=== PATIENT | female | born 1965 | race Caucasian/White ===

== ENCOUNTER 2017-04-29 23:50 | Observation (INO) | payer BC, OTHER ==
[~2017-04-29] VITALS: Ht 170.2 cm; Wt 117.2 kg
[~2017-04-29 23:50] MED LIST: ALEVE220 MG PO; AMPYRA10 MG PO; ANTI-GAS180 MG PO; BENADRYL50 MG PO; BENTYL20 MG PO; BUPROPION XL150 MG PO; CEFDINIR300 MG PO; CELEBREX200 MG PO; CIPRO500 MG PO; COLACE100 MG PO; COQ-10100 MG PO; CYANOCOBALAM1000 MCG PO; DULCOLAX10 MG PR; FISH OIL 1,0001 EAC7 PO; FLEET MINERAL133 ML PR; GAS-X80 MG PO; GENICIN500 MG PO; IBUPROFEN600 MG PO; LEVOFLOXACIN750 MG PO; MILK OF MAGN PO; NORCO 5/3251 TABLET PO; PERCOCET 5/31 TABLET PO; SERTRALINE HCL100 MG PO; SERTRALINE HCL50 MG PO; ST. JOHN'S WOR300 MG PO; TRAZODONE HCL50 MG PO; TYSABRI300 MG/15 IV; VITAMIN D1000 UNIT PO; WELLBUTRIN SR150 MG PO; ZOLOFT100 MG PO; Zeasorb Antifungal Treatment,Mitrazol Powder TP; [UNRECOGNIZED DRUG - OTHER]
[2017-04-30 00:41] LABS: HEMATOCRIT 35.5 % (36.0-46.0); MCH 27.1 PG (29.0-34.0); MCHC 34.1 G/DL (30.0-36.0); MCV 79.6 FL (83-99); MEAN PLAT.VOLUME 8.8 uM^3 (9.5-12.4); NRBC (%) 0.6 /100 WBC (0-0); PLATELET COUNT 156 K/uL (156-360); RBC DIS.WIDTH-CV 15.3 % (11.8-14.6); RBC DIS.WIDTH-SD 44.4 % (39-53); RED BLOOD COUNT 4.46 M/uL (3.80-5.20); WHITE BLOOD COUNT 6.5 K/uL (4.1-10.2)
[2017-04-30 00:51] LABS: CHLORIDE 107 mEq/L (99-109); POTASSIUM 3.8 mEq/L (3.7-5.4); SODIUM 141 mEq/L (136-147)
[2017-04-30 00:53] LABS: GLUCOSE 120 mg/dL (70-99)
[2017-04-30 00:54] LABS: ANION GAP 10 MEQ/L (2-14)
[2017-04-30 00:57] LABS: GFR ESTIMATE (CALCULATED) > 59 mL/min/; UREA NITROGEN (BUN) 10 mg/dL (9-23)
[2017-04-30 11:18] VITALS: BP 131/68
[2017-04-30] MEDS ORDERED: TRAZODONE HCL100 MG PO (12:25)
[2017-04-30] MEDS ORDERED: BENADRYL50 MG PO (12:26)
[2017-04-30 16:21] VITALS: BP 124/72
[2017-04-30 20:09] VITALS: BP 133/72
[2017-05-01 00:34] VITALS: BP 124/74
[2017-05-01 04:10] VITALS: BP 135/74
[2017-05-01 08:36] VITALS: BP 127/59
[2017-05-01 09:43] LABS: HEMATOCRIT 31.5 % (36.0-46.0); MCH 28.5 PG (29.0-34.0); MCHC 35.2 G/DL (30.0-36.0); MCV 80.8 FL (83-99); MEAN PLAT.VOLUME 8.7 uM^3 (9.5-12.4); NRBC (%) 0.4 /100 WBC (0-0); PLATELET COUNT 121 K/uL (156-360); RBC DIS.WIDTH-CV 15.3 % (11.8-14.6); RBC DIS.WIDTH-SD 44.9 % (39-53); WHITE BLOOD COUNT 5.5 K/uL (4.1-10.2)
[2017-05-01 10:49] LABS: ANION GAP 8 MEQ/L (2-14); CHLORIDE 105 MEQ/L (99-109); GFR ESTIMATE (CALCULATED) > 59 mL/min/; GLUCOSE 125 mg/dL (70-99); POTASSIUM 3.5 MEQ/L (3.7-5.4); SAMPLE HEMOLYSIS CHECK 0; SAMPLE ICTERIC CHECK 0; SAMPLE LIPEMIA CHECK 0; SODIUM 140 MEQ/L (136-147); UREA NITROGEN (BUN) 11 mg/dL (9-23)
[2017-05-01 11:58] VITALS: BP 126/67
[2017-05-01 17:19] VITALS: BP 128/74
[2017-05-01 23:33] VITALS: BP 129/78
[2017-05-02 04:57] VITALS: BP 131/72
[2017-05-02 08:06] VITALS: BP 124/62
[2017-05-02 10:36] LABS: HEMATOCRIT 34.6 % (36.0-46.0); MCH 26.8 PG (29.0-34.0); MCHC 33.5 G/DL (30.0-36.0); MCV 79.9 FL (83-99); MEAN PLAT.VOLUME 8.4 uM^3 (9.5-12.4); NRBC (%) 0.7 /100 WBC (0-0); PLATELET COUNT 132 K/uL (156-360); RBC DIS.WIDTH-CV 15.2 % (11.8-14.6); RBC DIS.WIDTH-SD 44.1 % (39-53); RED BLOOD COUNT 4.33 M/uL (3.80-5.20); WHITE BLOOD COUNT 5.9 K/uL (4.1-10.2)
[2017-05-02] MEDS ORDERED: DULOXETINE HCL30 MG PO (10:38)
[2017-05-02 10:56] LABS: ANION GAP 12 MEQ/L (2-14); CHLORIDE 106 MEQ/L (99-109); GFR ESTIMATE (CALCULATED) > 59 mL/min/; GLUCOSE 111 mg/dL (70-99); POTASSIUM 3.5 MEQ/L (3.7-5.4); SAMPLE HEMOLYSIS CHECK 0; SAMPLE ICTERIC CHECK 0; SAMPLE LIPEMIA CHECK 0; SODIUM 142 MEQ/L (136-147); UREA NITROGEN (BUN) 9 mg/dL (9-23)
[2017-05-02] MEDS ORDERED: LEXAPRO10 MG PO (14:49)
[2017-05-02] MEDS ORDERED: CYMBALTA60 MG PO (15:26)
[2017-05-02 16:18] VITALS: BP 127/67
== END 2017-05-02 18:13 | disposition home or self-care (01) ==
LOC: EME 23:50 → EDOF 04-30 01:58 → 3EAST 04-30 01:58 → EDOF 04-30 01:58 → 3EAST 04-30 06:59
PROVIDERS: Emergency Medicine; Physician Assistant
DX: G35 Multiple sclerosis (principal); G89.29 Other chronic pain; F33.9 Major depressive disorder, recurrent, unspecified; F41.9 Anxiety disorder, unspecified; N31.9 Neuromuscular dysfunction of bladder, unspecified; N39.45 Continuous leakage; R15.9 Full incontinence of feces; Z74.2 Need for assistance at home and no other household member able to render care; Z73.0 Burn-out; Z63.79 Other stressful life events affecting family and household; Z99.3 Dependence on wheelchair; E78.5 Hyperlipidemia, unspecified; Z88.8 Allergy status to other drugs, medicaments and biological substances; Z91.018 Allergy to other foods
CPT/HCPCS: 80048; 81003; 85027; 99281; 99285; G0378; J1200; J1650; J1885; J2765; J7030